=== PATIENT | female | born 1950 | race Caucasian/White ===

== ENCOUNTER 2018-07-30 07:56 | Inpatient (IN) | payer MEDICARE ==
[~2018-07-30] VITALS: Ht 157.5 cm; Wt 77.5 kg
[~2018-07-30 07:56] MED LIST: AMLO10TA6 PO; ENAL10TA PO; HYDR25TA6 PO
[2018-07-30] MEDS ORDERED: LACTATED RINGERS 1,000 ML IV SCH (09:33)
[2018-07-30] MEDS ORDERED: EPINEPHRINE 1 MG/ML, 1ML ONE (09:40)
[2018-07-30] MEDS ORDERED: THROMBIN 5,000 UNIT VIAL TP ONE (09:40)
[2018-07-30] MEDS ORDERED: LIDOCAINE/PF 0.5% ,50ML ONE (09:40)
[2018-07-30] MEDS ORDERED: VANCOMYCIN 1,000 MG ONE ×2 (09:40→12:59)
[2018-07-30] MEDS ORDERED: REMIFENTANIL 1 MG ONE (10:53)
[2018-07-30] MEDS ORDERED: KETAMINE 50 MG/ML, 10ML ONE (10:53)
[2018-07-30] MEDS ORDERED: MIDAZOLAM 1 MG/ML, 2ML ONE (10:54)
[2018-07-30] MEDS ORDERED: FENTANYL PF 100 MCG/2ML ONE ×2 (10:55→14:09)
[2018-07-30] MEDS ORDERED: TRIAMCINOLONE ACETONIDE 40 MG/ML, 1ML ONE (11:17)
[2018-07-30] MEDS ORDERED: DEXAMETHASONE 4 MG/ML, 1ML ONE ×2 (11:25)
[2018-07-30] MEDS ORDERED: SUGAMMADEX 200 MG/2 ML IVPush ONE (11:25)
[2018-07-30] MEDS ORDERED: ROCURONIUM 10MG/ML,5ML ONE (11:27)
[2018-07-30] MEDS ORDERED: METOCLOPRAMIDE 5 MG/ML, 2ML ONE (11:27)
[2018-07-30] MEDS ORDERED: LIDOCAINE-MPF 2% ,5ML ONE (11:27)
[2018-07-30] MEDS ORDERED: ONDANSETRON 2MG/ML, 2ML ONE (11:27)
[2018-07-30] MEDS ORDERED: CEFAZOLIN 1,000 MG ONE ×2 (11:28)
[2018-07-30] MEDS ORDERED: PROPOFOL 10 MG/ML, 20ML ONE ×3 (11:28)
[2018-07-30] MEDS ORDERED: ONDANSETRON 2MG/ML, 2ML IVPush PRN (14:00)
[2018-07-30] MEDS ORDERED: LABETALOL 5MG/ML, 20ML IV PRN (14:00)
[2018-07-30] MEDS ORDERED: HYDROmorphone 1 MG/ML, 1ML IV PRN (14:00)
[2018-07-30] MEDS ORDERED: OXYcodone 5 MG/5 ML ORAL.SOL UDC PO PRN (14:00)
[2018-07-30] MEDS ORDERED: MIDAZOLAM 1 MG/ML, 2ML IV PRN (14:00)
[2018-07-30] MEDS ORDERED: MEPERIDINE/PF 25MG/0.5ML IVPush PRN (14:00)
[2018-07-30] MEDS ORDERED: OXYcodone 5 MG/5 ML ORAL.SOL UDC ONE (14:10)
[2018-07-30] MEDS: FENTANYL PF 100 MCG/2ML IV PRN ×2 (14:12→14:45)
[2018-07-30 15:25] VITALS: BP 115/73
[2018-07-30] MEDS ORDERED: HYDROcodone/APAP 5/325 TABLET PO PRN (16:30)
[2018-07-30] MEDS ORDERED: BISACODYL 10 MG SUPP PR PRN (16:30)
[2018-07-30] MEDS ORDERED: MAGNESIUM HYDROXIDE 8%, 30ML UDC PO PRN (16:30)
[2018-07-30] MEDS ORDERED: HYDROcodone/APAP 10/325 MG TABLET PO PRN (16:30)
[2018-07-30] MEDS ORDERED: morphine SULFATE 10 MG/ML, 1ML IV PRN (16:30)
[2018-07-30] MEDS ORDERED: PROMETHAZINE 25 MG/ML, 1ML IM PRN (16:30)
[2018-07-30] MEDS ORDERED: ONDANSETRON 2MG/ML, 2ML IV PRN (16:30)
[2018-07-30] MEDS: D5%-0.9% NACL+KCL 20MEQ 1,000 ML IV SCH (17:42)
[2018-07-30] MEDS: CEFAZOLIN PMX 1GM/50ML 50 ML IVPB SCH (18:38)
[2018-07-30 19:48] VITALS: BP 124/77
[2018-07-30 23:59] VITALS: BP 120/79
[2018-07-31] MEDS: D5%-0.9% NACL+KCL 20MEQ 1,000 ML IV SCH ×2 (02:30→12:35)
[2018-07-31] MEDS: CEFAZOLIN PMX 1GM/50ML 50 ML IVPB SCH (03:10)
[2018-07-31 04:00] VITALS: BP 123/69
[2018-07-31 07:44] VITALS: BP 112/68
[2018-07-31] MEDS ORDERED: AMLODIPINE 5 MG TABLET ONE (08:16)
[2018-07-31 08:20] VITALS: BP 121/74
[2018-07-31] MEDS ORDERED: ENALAPRIL 10 MG TABLET PO SCH (09:00)
[2018-07-31] MEDS ORDERED: AMLODIPINE 10 MG TAB PO SCH (09:00)
[2018-07-31] MEDS ORDERED: HYDROCHLOROTHIAZIDE 25 MG TABLET PO SCH (09:00)
[2018-07-31] MEDS ORDERED: SENNA/DOCUSATE TABLET PO SCH (09:00)
== END 2018-07-31 13:01 | disposition home or self-care (01) | DRG 472 ==
LOC: ORIP 07:56 → 4NOR 16:00 → DCLOUNGE 07-31 12:51
PROVIDERS: ADMIT Orthopaedic Surgery Orthopaedic Surgery of the Spine; ATTEND Orthopaedic Surgery Orthopaedic Surgery of the Spine
PROC: 0RB30ZZ Excision of Cervical Vertebral Disc, Open Approach (ICD-10-PCS; 2018-07-30)
PROC: 4A11X4G Monitoring of Peripheral Nervous Electrical Activity, Intraoperative, External Approach (ICD-10-PCS; 2018-07-30)
PROC: 0RG2070 Fusion of 2 or more Cervical Vertebral Joints with Autologous Tissue Substitute, Anterior Approach, Anterior Column, Open Approach (ICD-10-PCS; principal; 2018-07-30 11:00)
DX: M48.02 Spinal stenosis, cervical region (principal); M50.01 Cervical disc disorder with myelopathy, high cervical region; I10 Essential (primary) hypertension; M43.12 Spondylolisthesis, cervical region; M54.12 Radiculopathy, cervical region; Z90.89 Acquired absence of other organs; Z88.0 Allergy status to penicillin; Z88.1 Allergy status to other antibiotic agents; Z88.8 Allergy status to other drugs, medicaments and biological substances; Z98.1 Arthrodesis status
CPT/HCPCS: 36415; 72040; 86850; 86900; 95938; 95941; C1713; G0378; J0171; J0690; J1100; J2001; J2250; J2405; J2704; J3010; J3301; J3370; J3490; C1762; J2765; J3480; J7120